=== PATIENT | female | born 1950 | race Caucasian/White ===

== ENCOUNTER 2016-12-29 00:05 | Emergency (ER) | payer BC ==
--- NOTE | 2016-12-29 04:34 | ER ---
ADMIT: 12/29/2016 RM/LOC: ER [facility] MR#: [id number] [address] [id number] [address] [place] [address] Emergency Room Report SEX: F AGE: 66 : 1950 DATE: 12/29/2016 The patient is a 66-year-old female transferred by [facility] for shortness of breath that awakened her tonight, saw Dr. Gonzales earlier in the day, placed on Augmentin, cough medicine for sinusitis and bronchitis. Paramedics treated with DuoNeb with improvement. Exam remarkable for nontoxic, afebrile, hysterical female with no audible wheeze, obviously hyperventilating, responded well to Xanax 0.25 mg sublingual. Chest x-ray negative. EKG is sinus rhythm without ST-T or Q-wave change. Normal CBC. Lactic acid elevated at 3.3. Troponin less than 0.015. D-dimer within normal limits. Lipase 154. BNP 89. UA, elevated specific gravity, otherwise negative. The patient was given a liter of fluids with improvement, offered Xanax which she accepted, 0.25 mg sublingual t.i.d. p.r.n. #10. Follow up Dr. Gonzales as needed. Alex Doe MD/ raquell JOB #: [id number] CC: Alex Doe MD, Attending Physician Ronen Gonzales MD, Family Physician Ronen Gonzales MD
== END 2016-12-29 02:05 | disposition home or self-care (01) ==
LOC: ER 00:05
DX: J32.9 Chronic sinusitis, unspecified (principal); F41.9 Anxiety disorder, unspecified; Z88.8 Allergy status to other drugs, medicaments and biological substances; Z79.899 Other long term (current) drug therapy